=== PATIENT | male | born 1975 | race African-American/Black ===

== ENCOUNTER 2024-07-08 09:20 | Emergency (ER) | payer OTHER, SELFPAY ==
[2024-07-08 09:38] VITALS: BP 169/96; PULSE 75; RESP 18; TEMP 36.5; O2SAT 99; BMI 30.4
--- NOTE | 2024-07-08 09:48 | ED.GENADULT ---
HPI - General Adult General Chief complaint: Back Pain/Injury Stated complaint: back pain Time Seen by Provider: 07/08/24 09:48 Source: patient Mode of arrival: ambulatory Limitations: no limitations History of Present Illness ED Provider: greyson MATHEW narrative: Patient is a 49-year-old male presenting to the emergency department with complaint of lower back for several years, has done PT in the past, recently worsened last weekend. States symptoms were exacerbated after moving. States flexeril has helped in the past. Denies fevers. Denies saddle anesthesia, bowel or bladder incontinence. Pain radiates down right leg. Denies weakness or tingling to lower extremities. MD complaint: back pain Onset (ago): week(s) Location: back Radiation: distal Severity: severe and similar to prior episodes Pain Consistency: constant Associated symptoms: denies other symptoms Related Data Previous Rx's ?Medication ?Instructions ?Recorded cyclobenzaprine 10 mg tablet 10 mg PO TID PRN muscle spasm #10 07/08/24 tabs lidocaine 5 % topical patch 1 patch topical DAILY #15 ea 07/08/24 prednisone 20 mg tablet 40 mg (2 x 20 mg) PO DAILY #10 tabs 07/08/24 Allergies Allergy/AdvReac Type Severity Reaction Status Date / Time hydrocodone Allergy Rash Verified 07/08/24 09:40 naproxen Allergy Rash Verified 07/08/24 09:40 Review of Systems Review of Systems: As per HPI Yes all other systems are reviewed and are negative Constitutional: Constitutional: Reports as per HPI [facility] Social History Social History Advance Directives: No Advance Directives Information Provided: No Do you have a plan to hurt others: No Plan Physical Exam ED Vital Signs: Vital Signs - 24 hr 07/08/24 09:38 07/08/24 11:11 Temperature 97.7 F 98.1 F Pulse Rate 75 68 Respiratory Rate 18 14 Blood Pressure 169/96 H 170/95 H Pulse Oximetry 99 97 Oxygen Delivery Method Room Air Room Air BMI result Body Mass Index 30.4 Vital signs have been reviewed and appear to be correct. Blood pressure elevated. Heart rate normal. Respiratory rate normal. Temperature normal. Oxygen saturation normal. Const General: cooperative, healthy appearing and no acute distress Orientation/consciousness: oriented to person, oriented to place, oriented to time and patient oriented x3 Limitations: no limitations HENMT Head: Yes normocephalic and Yes atraumatic Ears: external ears normal General nose exam: Normal external nose present Face and sinus: Yes face symmetric Mouth: oropharynx normal and moist mucous membranes Throat: Yes uvula midline Eyes Pupils: Equal, round and reactive pupils present Neck Neck: Yes normal visual inspection and Yes supple Resp Effort & Inspection: normal respiratory effort and able to speak in complete sentences Auscultation: clear to auscultation bilaterally Cardio Rate: regular rate Rhythm: regular rhythm Heart sounds: S1 normal heart sound present and S2 normal heart sound present GI Palpation (GI): Soft to palpation and nontender Auscultation: normoactive bowel sounds General: Yes no CVA tenderness Back/Spine/Pelvis Back: no CVA tenderness Thoracic/Lumbar Spine: thoracic and lumbar spine normal to inspection, thoraco-lumbar ROM normal, pain with thoraco-lumbar ROM, paraspinal muscle tenderness on the right in the mid lumbar, No thoracic spinal tenderness, No lumbar spinal tenderness and straight leg raise positive right Skin General skin exam: elasticity normal and turgor normal Neuro General: oriented to person, oriented to place, oriented to time, patient oriented x3, moves all extremities, no focal motor deficits and CN's II-XI intact bilaterally Cranial nerves: Yes Equal, round and reactive pupils present Cognition (Neuro): normal cognition Extrem General: Yes full ROM, Yes no pedal edema and Yes no calf tenderness Psych Mental Status: mental status grossly normal Affect: normal affect Thought process: Normal thought process present Medications Administered Discontinued Medications Generic Name Dose Route Start Last Admin Trade Name Freq PRN Reason Stop Dose Admin Cyclobenzaprine HCl 10 mg 07/08/24 11:05 07/08/24 11:36 Cyclobenzaprine Hcl 10 Mg Tablet PO 07/08/24 11:06 10 mg ONCE ONE Administration Prednisone 50 mg 07/08/24 11:05 07/08/24 11:36 Prednisone 10 Mg Tablet PO 07/08/24 11:06 50 mg ONCE ONE Administration Medical Decision Making Medical Decision Making [facility] Narrative: Patient is a 49-year-old male presenting to the emergency department with complaint of lower back for several years, has done PT in the past, recently worsened last weekend. On exam patient is awake, A+Ox3, VS WNL, afebrile, normal neurological exam without focal deficits, physical exam findings as above. Given reported symptoms and physical exam findings, initial differential includes lumbar strain, lumbar radiculopathy, degenerative disc disease, disc herniation, spinal stenosis, spondylosis. Less likely vertebral fracture. No red flag findings concerning for malignancy/mass, SEA, cauda equina/cord compression. Do not feel imaging is indicated at this time as patient denies fall or other trauma, has no midline tenderness, pain is similar to chronic pain in the past. Symptoms improved with prednisone and flexeril given in the ED, will discharge on same. Follow up with PCP. Return precautions discussed. Patient verbalized understanding of and agreement with plan. Differential Diagnosis Differential Diagnoses: The differential diagnosis associated with the presentation includes As per MDM External Record Review External record reviewed: Inpatient record, Office record and Outpatient record Prescription Management I considered prescription management with: Other Discharge Plan Discharge Clinical Impression: Lumbar radiculopathy Patient Disposition: Home, Self-Care Instructions: Lumbar Radiculopathy (ED), Back Pain (ED) Additional Instructions: You were evaluated in the emergency department today for back pain. Your evaluation did not show signs of medical conditions requiring emergent intervention at this time. We recommended that you use ibuprofen or Tylenol per package directions every 6 hours as needed for pain. If necessary, you can alternate these medications so that you take one medication every 3 hours. For instance, at noon take ibuprofen, then at 3:00 p.m. take Tylenol, then at 6:00 p.m. take ibuprofen. You have been prescribed a muscle relaxer which you may take every 8 hours as needed for spasms. You have been prescribed 5% topical lidocaine patches which you can wear for up to 12 hours in a 24 hour period. Do not apply heat directly over the patches. You are being prescribed a short course of steroids to decrease inflammation. Please schedule an appointment for follow-up with your primary care physician this week for further evaluation of your symptoms. Return to the emergency department if you experience worsening back pain, difficulty walking, fevers, numbness, tingling, incontinence, groin numbness or tingling, or any other concerning symptoms. Follow up with [facility] to have your return to work completed. [facility] [address] [place] [address] Prescriptions: New cyclobenzaprine 10 mg tablet 10 mg PO TID PRN (Reason: muscle spasm) Qty: 10 0RF lidocaine 5 % adhesive patch,medicated 1 patch topical DAILY Qty: 15 0RF Rx Instructions: leave on most painful area for up to 12 hrs prednisone 20 mg tablet 40 mg PO DAILY Qty: 10 0RF Stand Alone Forms: Work/School Release Print Language: Honduran
[2024-07-08 11:11] VITALS: BP 170/95; PULSE 68; RESP 14; TEMP 36.7; O2SAT 97
[2024-07-08] MEDS: predniSONE 10 MG TABLET 50 MG PO (11:36)
[2024-07-08] MEDS: Cyclobenzaprine HCl 10 MG TABLET PO (11:36)
[2024-07-08 12:15] VITALS: BP 170/95; PULSE 68; RESP 14; TEMP 36.7; O2SAT 97
== END 2024-07-08 12:17 | disposition home or self-care (01) ==
PROVIDERS: Emergency Provider Emergency Medicine Emergency Medical Services
DX: M54.16 Radiculopathy, lumbar region (principal)
CPT/HCPCS: 99283

== ENCOUNTER 2024-07-25 01:33 | Emergency (ER) | payer OTHER, SELFPAY ==
[2024-07-25 01:44] VITALS: BP 147/92; PULSE 98; RESP 18; TEMP 37; O2SAT 97; BMI 30.3
--- NOTE | 2024-07-25 02:28 | ED.ASTHMA ---
HPI - Asthma General Chief Complaint: Asthma Stated Complaint: asthmatic Time Seen by Provider: 07/25/24 02:25 Source: patient Mode of arrival: ambulatory Limitations: no limitations History of Present Illness ED Provider: Dr. Gilmore HPI Narrative: 49yo male with a history of asthma, got out of the shower felt slightly short of breath but his inhailer was out. He is concerned about not having one tonight. Related Data Previous Rx's ?Medication ?Instructions ?Recorded cyclobenzaprine 10 mg tablet 10 mg PO TID PRN muscle spasm #10 07/08/24 tabs lidocaine 5 % topical patch 1 patch topical DAILY #15 ea 07/08/24 prednisone 20 mg tablet 40 mg (2 x 20 mg) PO DAILY #10 tabs 07/08/24 albuterol sulfate 90 mcg/actuation 2 inh inhalation Q4-6H PRN 07/25/24 breath activated powder inhaler shortness of breath or wheezing #1 (ProAir RespiClick) ea Allergies Allergy/AdvReac Type Severity Reaction Status Date / Time hydrocodone Allergy Rash Verified 07/25/24 01:48 naproxen Allergy Rash Verified 07/25/24 01:48 Review of Systems Review of Systems: Yes all other systems are reviewed and are negative Neurologic: Denies Sensory deficit (Neuro) [facility] Social History Social History Advance Directives: No Advance Directives Information Provided: No Physical Exam Vital Signs: Vital Signs: Last Vital Signs Temp 98.6 F 07/25/24 01:44 Pulse 98 07/25/24 01:44 Resp 18 07/25/24 01:44 BP 147/92 H 07/25/24 01:44 Pulse Ox 97 07/25/24 01:44 O2 Del Method Room Air 07/25/24 01:44 BMI result Body Mass Index 30.3 Const: General: healthy appearing Nutritional Appearance: average body habitus Orientation/consciousness: oriented to person and patient oriented x3 Limitations: no limitations HEENT: Head: Yes normal to inspection Ears: external ears normal General nose exam: Normal external nose present Mouth: Normal oral and palatal mucosa present and oropharynx normal Throat: Yes posterior oropharynx normal Eyes: General: appearance normal, both eyes and all related structures Neck: Other: supple Neck: Yes normal visual inspection Chest: Chest palpation & inspection: normal inspection of the chest Resp: Other: slight wheeze Cardio: Jugular venous distension: no JVD Rate: regular rate Rhythm: regular rhythm Heart sounds: S1 normal heart sound present and S2 normal heart sound present GI: Inspection: Yes normal to inspection Palpation (GI): Soft to palpation, nontender and No hepatosplenomegaly present Auscultation: normal bowel sounds : General: Yes no CVA tenderness Back/Spine/Pelvis: Back: no CVA tenderness Skin: General skin exam: no rashes or lesions noted Neuro: General: oriented to person and patient oriented x3 Cranial nerves: Yes CN's II-XII intact bilaterally Motor exam (neuro): 5/5 motor strength present throughout Sensory Exam: No Sensory deficit (Neuro) Extrem: General: Yes normal to inspection Psych: Appearance: grossly normal Course Reevaluation(s) Reevaluation #1: will give patient an inhailer in the ED and write a prescription for one Time: 02:30 Medical Decision Making Differential Diagnosis Differential Diagnoses: The differential diagnosis associated with the presentation includes (asthma) Tests considered The following testing was considered but not selected: CXR: considered but lungs relatively clear, no fever Prescription Management I considered prescription management with: Antibiotic (no evidence of pneumonia) Chronic Conditions Patient?s care impacted by: Other (asthma) Discharge Plan Discharge Clinical Impression: Asthma with acute exacerbation Patient Disposition: Home, Self-Care Instructions: Asthma (ED) Prescriptions: New ProAir RespiClick 90 mcg/actuation aerosol powdr breath activated 2 inh inhalation Q4-6H PRN (Reason: shortness of breath or wheezing) Qty: 1 0RF No Action cyclobenzaprine 10 mg tablet 10 mg PO TID PRN (Reason: muscle spasm) Qty: 10 0RF lidocaine 5 % adhesive patch,medicated 1 patch topical DAILY Qty: 15 0RF Rx Instructions: leave on most painful area for up to 12 hrs prednisone 20 mg tablet 40 mg PO DAILY Qty: 10 0RF Referrals: Physician,None [Primary Care Provider] - 1 week Print Language: Monegasque
[2024-07-25] MEDS: Albuterol Sulfate 90 MCG 8 GM INHALER 2 PUFF INHALE (02:53)
[2024-07-25 03:00] VITALS: BP 147/92; PULSE 98; RESP 16; TEMP 37; O2SAT 98
== END 2024-07-25 03:01 | disposition home or self-care (01) ==
PROVIDERS: Emergency Provider Emergency Medicine
DX: J45.901 Unspecified asthma with (acute) exacerbation (principal)
CPT/HCPCS: 99284